=== PATIENT | female | born 1965 | race Caucasian/White ===

== ENCOUNTER 2019-03-16 05:31 | Emergency (ER) | payer BC, OTHER ==
--- NOTE | 2019-03-16 05:56 | EDM.PDOC ---
ED HPI GENERAL MEDICAL PROBLEM - General Chief Complaint: Skin Complaint Stated Complaint: NEEDLE STICK LEFT INDEX FINGER Time Seen by Provider: 03/16/19 05:53 Source of Information: Reports: Patient History Limitations: Reports: No Limitations - History of Present Illness INITIAL COMMENTS - FREE TEXT/NARRATIVE: Received a needlestick at work patient cleaned the area made it bleed no functional complaints ED ROS GENERAL - Review of Systems Review Of Systems: ROS reveals no pertinent complaints other than HPI. ED EXAM, SKIN/RASH Exam: See Below Text/Narrative:: Small puncture wound is appreciated digit #1 left hand distal tip Exam Limited By: No Limitations General Appearance: Alert, WD/WN, No Apparent Distress Departure - Departure Time of Disposition: 05:55 Disposition: Home, Self-Care 01 Condition: Good Clinical Impression: Needle stick injury of finger Qualifiers: Encounter type: initial encounter Qualified Code(s): S61.239A - Puncture wound without foreign body of unspecified finger without damage to nail, initial encounter; W27.3XXA - Contact with needle (sewing), initial encounter - Discharge Information Instructions: Wound Care, Adult, Needlestick Injury, [id number] Referrals: Samantha Macdonald DO [Primary Care Provider] - Additional Instructions: Follow-up primary care as needed, follow-up with infectious disease at the hospital - Assessment/Plan Plan: Assessment Acuity = acute Site and laterality = needlestick left hand 1 Etiology = needle Manifestations = none Location of injury = Home Lab values = follow needlestick protocol lab work done on paper will go to infectious disease Plan Follow-up primary care as needed This note was dictated using [employer] voice recognition software please call with any questions on syntax or grammar.
== END 2019-03-16 06:06 | disposition home or self-care (01) ==
LOC: JP.ED 05:31
DX: S61.231A Puncture wound without foreign body of left index finger without damage to nail, initial encounter (principal); W45.8XXA Other foreign body or object entering through skin, initial encounter
CPT/HCPCS: 99282

== ENCOUNTER 2024-02-09 05:37 | Day surgery (SDC) | payer BC ==
[2024-02-09 05:37] LABS: BASOPHILS PERCENT AUTO 0.2 % (0.1-1.3); EOSINOPHILS ABSOLUTE AUTO 0.06 K/uL (0.00-0.40); EOSINOPHILS PERCENT AUTO 0.7 % (0.0-5.4); HEMATOCRIT 39.2 % (34.3-46.0); HEMOGLOBIN 13.5 g/dL (11.2-15.5); IMMATURE GRAN ABSOLUTE AUTO 0.03 K/uL (0.00-0.23); IMMATURE GRAN PERCENT AUTO 0.3 % (0.0-0.7); LYMPHOCYTES ABSOLUTE AUTO 1.86 K/uL (0.8-3.3); LYMPHOCYTES PERCENT AUTO 20.2 % (11.4-47.7); MEAN CORPUSCULAR HEMOGLOBIN 28.7 pg (31.6-35.5); MEAN CORPUSCULAR HGB CONC 34.4 g/dL (31.6-35.5); MEAN CORPUSCULAR VOLUME 83.4 fL (81.4-99.0); MONOCYTES ABSOLUTE AUTO 0.62 K/uL (0.20-0.90); MONOCYTES PERCENT AUTO 6.7 % (3.3-12.6); NEUTROPHILS PERCENT AUTO 71.9 % (40.0-78.1); PLATELET COUNT,PLT 140 K/uL (130-375); WHITE BLOOD CELL COUNT,WBC 9.2 K/uL (3.2-11.0)
[2024-02-09 05:39] LABS: BASOPHILS ABSOLUTE AUTO 0.02 K/uL (0.00-0.10)
[2024-02-09 05:56] LABS: A/G RATIO 0.9 (1.2-2.2); ALANINE AMINOTRANSFERASE,ALT 38 U/L (12-78); ALBUMIN 3.8 g/dL (3.4-5.0); ALKALINE PHOSPHATASE 81 U/L (46-116); ASPARTATE AMNIOTRANSFERASE,AST 20 U/L (15-37); BILIRUBIN TOTAL 0.4 mg/dL (0.2-1.0); BLOOD UREA NITROGEN,BUN 32 mg/dL (7-18); CALCIUM 9.4 mg/dL (8.5-10.1); CARBON DIOXIDE,CO2 26 mmol/L (21-32); CHLORIDE,CL 99 mmol/L (100-108); ESTIMATED GFR 66 mL/min (>60); GLUCOSE RANDOM 202 mg/dL (74-106); PROTEIN TOTAL,TP 8.1 g/dL (6.4-8.2); SODIUM,NA 135 mmol/L (140-148)
[2024-02-09] MEDS ORDERED: Succinylcholine 200 MG/10 ML MDV ONE (07:17)
[2024-02-09] MEDS ORDERED: Neostigmine Methylsulfate 10 MG/10 ML MDV ONE (07:17)
[2024-02-09] MEDS ORDERED: Glycopyrrolate 0.2 MG/ML 5 ML MDV ONE (07:17)
[2024-02-09] MEDS ORDERED: Rocuronium 50 MG/5 ML Vial ONE (07:17)
[2024-02-09] MEDS ORDERED: fentaNYL 250 MCG/5 ML SDV ONE (07:17)
[2024-02-09] MEDS ORDERED: Propofol 200 MG/20 ML SDV ONE ×2 (07:17→08:34)
[2024-02-09] MEDS ORDERED: Ondansetron 4 MG/2 ML SDV ONE (07:17)
[2024-02-09] MEDS ORDERED: Dexamethasone 4 MG/ML SDV ONE (07:17)
[2024-02-09] MEDS: Lactated Ringers 1,000 ML IV SCH (07:36)
[2024-02-09] MEDS: Nozin Nasal Sanitizer NASBOTH SCH (07:37)
[2024-02-09] MEDS: Bupivacaine 0.5% 50 ML MDV ONE (08:22)
[2024-02-09] MEDS ORDERED: Sugammadex Sodium 200 MG/2 ML VIAL IV ONE (08:33)
[2024-02-09] MEDS: traMADol 50 MG Tab PO ONE (10:41)
== END 2024-02-09 11:30 | disposition home or self-care (01) ==
LOC: JP.SDS 05:37
PROVIDERS: ATTEND Specialist
DX: S86.311A Strain of muscle(s) and tendon(s) of peroneal muscle group at lower leg level, right leg, initial encounter (principal); E11.9 Type 2 diabetes mellitus without complications; I10 Essential (primary) hypertension; K21.9 Gastro-esophageal reflux disease without esophagitis; X58.XXXA Exposure to other specified factors, initial encounter
CPT/HCPCS: 01470; 28200; 28899; 36415; 80053; 85025; A9270; J0330; J0665; J0690; J1100; J2405; J2704; J2710; J3010; J3490; J7120

== ENCOUNTER 2025-01-10 07:14 | Day surgery (SDC) | payer BC ==
[2025-01-10] MEDS ORDERED: Bupivacaine 0.25%/EPINEPHrine 1:200,000 30 ML SDV ONE (07:32)
[2025-01-10 07:47] LABS: HEMATOCRIT 38.4 % (34.3-46.0); HEMOGLOBIN 12.8 g/dL (11.2-15.5); MEAN CORPUSCULAR HEMOGLOBIN 28.6 pg (31.6-35.5); MEAN CORPUSCULAR HGB CONC 33.3 g/dL (31.6-35.5); MEAN CORPUSCULAR VOLUME 85.7 fL (81.4-99.0); RED BLOOD CELL COUNT 4.48 M/uL (3.77-5.24)
[2025-01-10] MEDS: Nozin Nasal Sanitizer NASBOTH ONE (07:48)
[2025-01-10] MEDS: Lactated Ringers 1,000 ML IV SCH (07:50)
[2025-01-10] MEDS ORDERED: ceFAZolin 2 GM in Premix Bag 1 BAG IV ONE (08:00)
[2025-01-10 08:05] LABS: ANION GAP 15.2 mmol/L (5.0-14.0); CALCIUM 9.3 mg/dL (8.5-10.1); CREATININE 1.1 mg/dL (0.6-1.0); EST CRCL DRUG DOSING (CG) 60.28 mL/min; POTASSIUM,K 4.2 mmol/L (3.6-5.2)
[2025-01-10] MEDS ORDERED: fentaNYL 250 MCG/5 ML SDV ONE ×2 (08:15→09:39)
[2025-01-10] MEDS ORDERED: Glycopyrrolate 0.2 MG/ML 5 ML MDV ONE (08:16)
[2025-01-10] MEDS ORDERED: Neostigmine Methylsulfate 10 MG/10 ML MDV ONE (08:16)
[2025-01-10] MEDS ORDERED: Propofol 200 MG/20 ML SDV ONE (08:16)
[2025-01-10] MEDS ORDERED: Dexamethasone 4 MG/ML SDV ONE (08:16)
[2025-01-10] MEDS ORDERED: Ondansetron 4 MG/2 ML SDV ONE (08:16)
[2025-01-10] MEDS ORDERED: Succinylcholine 200 MG/10 ML MDV ONE (08:16)
[2025-01-10] MEDS ORDERED: Rocuronium 50 MG/5 ML Vial ONE (08:16)
[2025-01-10] MEDS: Bupivacaine 0.5% 30 ML SDV ONE (09:57)
[2025-01-10] MEDS ORDERED: Lactated Ringers 1,000 ML ONE (10:07)
[2025-01-10] MEDS: fentaNYL 50 MCG/ML SDV IVPUSH ONE (11:04)
[2025-01-10] MEDS: traMADol 50 MG Tab PO PRN (12:22)
== END 2025-01-10 12:47 | disposition home or self-care (01) ==
LOC: JP.SDS 07:14
PROVIDERS: ATTEND Specialist
DX: M77.01 Medial epicondylitis, right elbow (principal); K21.9 Gastro-esophageal reflux disease without esophagitis; I10 Essential (primary) hypertension; E11.9 Type 2 diabetes mellitus without complications
CPT/HCPCS: 36415; 64718; 80048; 85027; 93005; 93010; A9270; J0330; J0665; J1100; J1596; J2405; J2704; J2710; J3010; J7120; 01712-QZ; J3490